=== PATIENT | male | born 2000 | race Caucasian/White ===

== ENCOUNTER 2022-11-03 20:08 | Emergency (ER) | payer BC ==
[~2022-11-03] VITALS: Ht 182.9 cm; Wt 81.6 kg
[2022-11-03] MEDS ORDERED: DIPHTH/TETANUS/ACEL. PERTUSSIS 0.5 ML SYR IM ONE (21:45)
[2022-11-03] MEDS ORDERED: TETANUS/DIPHTHERIA TOX ADULT 0.5 ML SYR ONE (22:20)
[2022-11-03] MEDS ORDERED: BACITRACIN ZINC 0.9GM TP ONE (22:53)
[2022-11-03] MEDS ORDERED: LIDOCAINE 1% 10 ML MULTIDOSE VIAL IJ ONE (22:53)
[2022-11-03 23:16] VITALS: BP 136/76
== END 2022-11-03 23:16 | disposition home or self-care (01) ==
LOC: FSED 20:16
DX: S01.21XA Laceration without foreign body of nose, initial encounter (principal); W22.09XA Striking against other stationary object, initial encounter; Y92.89 Other specified places as the place of occurrence of the external cause
CPT/HCPCS: 90471; 90714; 99282